=== PATIENT | male | born 1975 | race Caucasian/White ===

== ENCOUNTER 2018-02-21 02:44 | Emergency (ER) | payer MEDICAID ==
[~2018-02-21] VITALS: Ht 182.9 cm; Wt 70.4 kg
[2018-02-21] MEDS ORDERED: LIDOcaine 1.5% w/epinephrine 1:200,000 5ml ampul IJ ONE (04:55)
[2018-02-21] MEDS ORDERED: SULF1TAB49 PO (04:58)
[2018-02-21] MEDS ORDERED: HYDR-4383 PO (04:58)
[2018-02-21] MEDS ORDERED: NAPR-56 PO (04:58)
[2018-02-21] MEDS ORDERED: sulfamethoxazole/trimethoprim DS (800/160mg) tablet PO ONE (05:00)
[2018-02-21] MEDS ORDERED: HYDROcodone/acetaminophen 10/325mg tab PO ONE (05:00)
[2018-02-21] MEDS ORDERED: naproxen 500mg tablet PO ONE (05:00)
[2018-02-21] MEDS ORDERED: LIDOcaine 1% w/EPI 1:100,000 30ml vial (MDV) IJ ONE (05:00)
[2018-02-21 07:08] VITALS: BP 131/73
== END 2018-02-21 07:09 | disposition home or self-care (01) ==
LOC: ER 02:45
DX: L02.214 Cutaneous abscess of groin (principal); L02.415 Cutaneous abscess of right lower limb; F17.210 Nicotine dependence, cigarettes, uncomplicated; Z86.14 Personal history of Methicillin resistant Staphylococcus aureus infection
CPT/HCPCS: 10061; 99284; 99406; J3490

== ENCOUNTER 2019-05-27 11:56 | Emergency (ER) | payer MEDICAID, OTHER ==
[~2019-05-27] VITALS: Ht 182.9 cm; Wt 67.0 kg
[~2019-05-27 11:56] MED LIST: HYDR-4383 PO
[2019-05-27 11:58] VITALS: BP 129/80
[2019-05-27] MEDS ORDERED: IBUP-1984 PO (12:43)
[2019-05-27] MEDS ORDERED: ibuprofen tablet 400 MG TABLET PO ONE (12:45)
== END 2019-05-27 14:04 | disposition home or self-care (01) ==
LOC: ER 11:56
DX: S63.592A Other specified sprain of left wrist, initial encounter (principal); Z86.14 Personal history of Methicillin resistant Staphylococcus aureus infection; Z79.899 Other long term (current) drug therapy; W01.0XXA Fall on same level from slipping, tripping and stumbling without subsequent striking against object, initial encounter; Y93.89 Activity, other specified; Y92.89 Other specified places as the place of occurrence of the external cause; Y99.8 Other external cause status
CPT/HCPCS: 29125; 73110; 99284

== ENCOUNTER 2020-12-13 20:18 | Emergency (ER) | payer MEDICAID, OTHER ==
[~2020-12-13] VITALS: Ht 182.9 cm; Wt 72.7 kg
[2020-12-13 20:30] VITALS: BP 133/84
[2020-12-15] MEDS ORDERED: ERYT1OIN6 RIGHTEYE (05:37)
== END 2020-12-14 03:36 | disposition left against medical advice (07) ==
LOC: ER 20:19
DX: H57.11 Ocular pain, right eye (principal); Z53.21 Procedure and treatment not carried out due to patient leaving prior to being seen by health care provider

== ENCOUNTER 2020-12-15 03:50 | Emergency (ER) | payer OTHER ==
[~2020-12-15] VITALS: Ht 182.9 cm; Wt 72.7 kg
[2020-12-15 03:58] VITALS: BP 130/91
[2020-12-15] MEDS ORDERED: proparacaine 0.5% ophthalmic drops 15ml EACHEYE ONE (04:25)
[2020-12-15] MEDS ORDERED: tropicamide 0.5% ophthalmic drops 15ml EACHEYE ONE (05:30)
[2020-12-15] MEDS ORDERED: erythromycin ophthalmic ointment 1gm tube RIGHTEYE ONE (05:35)
[2020-12-15] MEDS ORDERED: ERYT1OIN6 RIGHTEYE (05:37)
--- NOTE | 2020-12-15 06:15 | NUR ---
Patient given 1st eye drop, I was waiting 5min to admin antibiotic ointment when another patient coded. After code I went back and patient not in room or in hospital. Dr. Valdez was advised. Patient had been advised he would be getting a referral to Dr. Schwartz for further consultation.
== END 2020-12-15 06:27 | disposition left against medical advice (07) ==
LOC: ER 03:51
DX: S05.8X1A Other injuries of right eye and orbit, initial encounter (principal); T15.01XA Foreign body in cornea, right eye, initial encounter; H57.11 Ocular pain, right eye; Z86.14 Personal history of Methicillin resistant Staphylococcus aureus infection; X58.XXXA Exposure to other specified factors, initial encounter; Y93.89 Activity, other specified; Y92.89 Other specified places as the place of occurrence of the external cause; Y99.8 Other external cause status
CPT/HCPCS: 65220; 99284

== ENCOUNTER 2021-01-29 14:40 | Emergency (ER) | payer SELFPAY ==
[~2021-01-29] VITALS: Ht 185.4 cm; Wt 77.3 kg
[2021-01-29 14:48] VITALS: BP 123/82
== END 2021-01-29 19:01 | disposition left against medical advice (07) ==
LOC: ER 14:41
DX: R07.89 Other chest pain (principal); Z53.21 Procedure and treatment not carried out due to patient leaving prior to being seen by health care provider
CPT/HCPCS: 93005

== ENCOUNTER 2021-11-24 20:01 | Emergency (ER) | payer MEDICAID ==
[~2021-11-24] VITALS: Ht 182.9 cm; Wt 72.7 kg
[2021-11-24 20:30] VITALS: BP 108/77
--- NOTE | 2021-11-24 20:34 | NUR ---
Patient upset and feeling ill, with his mother. Demanding to be taken back to a room, yelling at me that I'm rude. I asked the patient's mother to leave the triage room, she started screaming at me again that I was rude and that they were leaving. They then left the ER.
== END 2021-11-24 20:48 | disposition left against medical advice (07) ==
LOC: ER 20:02
DX: R07.89 Other chest pain (principal); Z53.21 Procedure and treatment not carried out due to patient leaving prior to being seen by health care provider
CPT/HCPCS: 93005

== ENCOUNTER 2022-11-10 10:18 | Emergency (ER) | payer MEDICAID ==
[~2022-11-10] VITALS: Ht 182.9 cm; Wt 72.7 kg
[2022-11-10 10:40] VITALS: BP 128/76; PULSE 90; RESP 18; TEMP 97.5; O2SAT 97
[2022-11-10] MEDS ORDERED: ERYT1OIN6 EACHEYE (14:14)
== END 2022-11-10 14:25 | disposition home or self-care (01) ==
LOC: ER 10:18
DX: H00.014 Hordeolum externum left upper eyelid (principal); Z79.899 Other long term (current) drug therapy
CPT/HCPCS: 67700; 99284

== ENCOUNTER 2023-03-03 18:50 | Emergency (ER) | payer MEDICAID ==
[~2023-03-03] VITALS: Ht 182.9 cm; Wt 72.0 kg
[2023-03-03 18:52] VITALS: TEMP 98.8
[2023-03-03] MEDS ORDERED: ondansetron 4mg rapidly disintigrating tab PO ONE (20:10)
[2023-03-03] MEDS ORDERED: LIDOcaine Viscous 15ml cup MM ONE (20:10)
[2023-03-03] MEDS ORDERED: mag hydrox/Alum hydrox/simeth 30ml oral suspension PO ONE (20:10)
[2023-03-03] MEDS ORDERED: SUCR1TAB PO (20:47)
[2023-03-03] MEDS ORDERED: OMEP40CA21 PO (20:47)
[2023-03-03] MEDS ORDERED: ONDA4TAB12 PO (20:47)
[2023-03-03 21:03] VITALS: BP 116/71; PULSE 84; RESP 17; O2SAT 98
== END 2023-03-03 23:03 | disposition home or self-care (01) ==
LOC: ER 18:50
DX: R07.89 Other chest pain (principal); M79.18 Myalgia, other site; R51.9 Headache, unspecified; Z86.14 Personal history of Methicillin resistant Staphylococcus aureus infection; Z79.899 Other long term (current) drug therapy
CPT/HCPCS: 93005; 99284